=== PATIENT | female | born 1980 | race Asian ===

== ENCOUNTER 2023-03-10 09:19 | Outpatient (CLI) | payer OTHER | END 2023-03-10 09:20 | disposition home or self-care (01) | LOC: DI.N 09:19 | PROVIDERS: ATTEND Physician Assistant | DX: Z53.9 Procedure and treatment not carried out, unspecified reason (principal) ==

== ENCOUNTER 2023-03-10 09:30 | Outpatient (CLI) | payer OTHER ==
--- NOTE | 2023-03-10 11:15 | XRAY Report ---
PROCEDURE: Knee 3 View LT INDICATIONS: KNEE PAIN LEFT TECHNIQUE: 4 views of the left knee(s) were acquired. COMPARISON: None. FINDINGS: Bones: No fractures or dislocations. No suspicious bony lesions. Minor joint space loss and trace spurring in the medial compartment. Joint spaces are otherwise normally maintained. Soft tissues: Mild knee joint effusion. No suspicious soft tissue calcifications or masses. IMPRESSION: 1. Minor osteoarthritic change medial compartment. 2. Small joint effusion. Reviewed by: Shreya Purvis MD on 03/10/2023 11:14 AM PDT Approved by: Shreya Purvis MD on 03/10/2023 11:14 AM PDT Station ID: [id number]
== END 2023-03-10 23:59 | disposition home or self-care (01) ==
LOC: DI.N 09:30
PROVIDERS: ATTEND Physician Assistant
DX: M17.12 Unilateral primary osteoarthritis, left knee (principal); M25.462 Effusion, left knee

== ENCOUNTER 2024-03-06 12:05 | Outpatient (CLI) | payer OTHER ==
--- NOTE | 2024-03-06 15:23 | XRAY Report ---
PROCEDURE: Shoulder 2+V LT INDICATIONS: LEFT SHOULDER PAIN TECHNIQUE: 3 views of the shoulder were acquired. COMPARISON: None. FINDINGS: Bones: No acute fractures or dislocations. No suspicious bony lesions. Visualized ribs appear inta ct. Mild acromioclavicular joint osteoarthrosis. Soft tissues: No suspicious soft tissue calcifications. The visualized lungs are within normal limi ts. IMPRESSION: Mild acromioclavicular joint osteoarthrosis. Reviewed by: Chucho Godinez MD on 03/06/2024 3:22 PM PDT Approved by: Chucho Godinez MD on 03/06/2024 3:22 PM PDT Station ID: [id number]
== END 2024-03-06 12:06 | disposition home or self-care (01) ==
LOC: DI 12:05
PROVIDERS: ATTEND Physician Assistant
DX: M19.012 Primary osteoarthritis, left shoulder (principal)

== ENCOUNTER 2024-05-26 08:28 | Outpatient (CLI) | payer OTHER ==
[2024-05-26 12:22] LABS: BASOPHILS # (AUTO) 0.1 10^3/uL (0.0-0.1); BASOPHILS % (AUTO) 0.9 %; EOSINOPHILS # (AUTO) 0.2 10^3/uL (0.0-0.7); EOSINOPHILS % (AUTO) 2.8 %; HCT - HEMATOCRIT 41.9 % (37.0-47.0); HGB - HEMOGLOBIN 14.3 g/dL (12.0-16.0); LYMPHOCYTES % (AUTO) 35.1 %; MEAN CORPUSCULAR HEMOGLOBIN 29.1 pg (27.0-31.0); MEAN CORPUSCULAR HGB CONC 34.1 g/dL (32.0-36.0); MEAN CORPUSCULAR VOLUME 85.3 fL (81.0-99.0); MONOCYTES # (AUTO) 0.4 10^3/uL (0.0-1.0); MONOCYTES % (AUTO) 6.6 %; NEUTROPHILS # (AUTO) 3.1 10^3/uL (1.5-6.6); NEUTROPHILS % (AUTO) 54.3 %; PLT - PLATELET COUNT 222 10^3/uL (130-450); RED BLOOD COUNT 4.91 10^6/uL (4.20-5.40); RED CELL DISTRIBUTION WIDTH 12.4 % (12.0-15.0); WHITE BLOOD COUNT 5.7 x10^3/uL (4.8-10.8)
[2024-05-26 13:01] LABS: ALBUMIN 4.6 g/dL (3.2-5.5); ALBUMIN/GLOBULIN RATIO 1.6 (1.0-2.2); ALKALINE PHOSPHATASE 68 IU/L (42-121); ALT ALANINE AMINOTRANSFERASE 48 IU/L (10-60); AST ASPARTATE AMINOTRANSFERASE 29 IU/L (10-42); BILIRUBIN,TOTAL 0.7 mg/dL (0.2-1.0); BUN - BLOOD UREA NITROGEN 17 mg/dL (6-20); CALCIUM 9.4 mg/dL (8.5-10.3); CARBON DIOXIDE - CO2 26 mmol/L (21-32); CHLORIDE 104 mmol/L (101-111); CHOL/HDL RATIO 3.5 (<4.4); CHOLESTEROL 176 mg/dL; CREATININE 0.5 mg/dL (0.6-1.3); GFR - MDRD 135 (>89); GLUCOSE 110 mg/dL (74-104); HDL CHOLESTEROL 50 mg/dL; LDL CHOLESTEROL,CALCULATED 88 mg/dL; LDL/HDL RATIO 1.8 (<4.4); SODIUM 137 mmol/L (135-145); TOTAL PROTEIN 7.4 g/dL (6.4-8.9); TRIGLYCERIDES 189 mg/dL; VLDL CHOLESTEROL 38 mg/dL
[2024-05-26 13:03] LABS: ESTIMATED AVERAGE GLUCOSE 111 mg/dL (70-100); HEMOGLOBIN A1c% 5.5 % (4.27-6.07)
[2024-05-26 13:31] LABS: THYROID STIMULATING HORMONE 0.81 uIU/mL (0.34-5.60)
== END 2024-05-26 08:29 | disposition home or self-care (01) ==
LOC: LAB.N 08:28
PROVIDERS: ATTEND Nurse Practitioner Family
DX: Z00.00 Encounter for general adult medical examination without abnormal findings (principal); E66.9 Obesity, unspecified
CPT/HCPCS: 36415; 80053; 80061; 83036; 83721; 84443; 85025

== ENCOUNTER 2024-05-26 12:58 | Outpatient (CLI) | payer OTHER ==
--- NOTE | 2024-05-27 13:29 | Ultrasound Report ---
PROCEDURE: Extremity Soft Tissue Limited INDICATIONS: SKIN NODULE TECHNIQUE: Real-time scanning was performed of the right side, with image documentation. COMPARISON: None. FINDINGS: Focused ultrasound examination of right inner thigh at patient's reported area of palpable lump shows a heterogeneously hypoechoic and solid appearing lesion measures 5.2 x 1.6 x 6.4 cm in si ze and show internal vascularity. IMPRESSION: Solid vascular mass in right inner thigh subcutaneous soft tissue concerning for benign or malignant neoplastic process. Consider biopsy or excision for more definitive diagnosis. Reviewed by: Stanley Pelayo MD on 05/27/2024 1:28 PM PDT Approved by: Stanley Pelayo MD on 05/27/2024 1:28 PM PDT Station ID: [id number]
== END 2024-05-26 12:59 | disposition home or self-care (01) ==
LOC: DI 12:58
PROVIDERS: ATTEND Nurse Practitioner Family
DX: R22.41 Localized swelling, mass and lump, right lower limb (principal); Z00.00 Encounter for general adult medical examination without abnormal findings; E66.9 Obesity, unspecified
CPT/HCPCS: 36415; 80053; 80061; 83036; 83721; 84443; 85025